=== PATIENT | female | born 1990 | race African-American/Black ===

== ENCOUNTER 2024-12-22 10:57 | Emergency (ER) | payer SELFPAY ==
[~2024-12-22] VITALS: Ht 167.6 cm; Wt 52.8 kg
[2024-12-22 11:10] VITALS: TEMP 97.9
[2024-12-22] MEDS ORDERED: LIDOCAINE HCL 1% 30ML-PF VIAL ONE (11:24)
[2024-12-22] MEDS: LORAZEPAM INJ 2 MG/ML VIAL IV ONE (11:27)
[2024-12-22] MEDS ORDERED: LIDOCAINE 1% 10 ML MULTIDOSE VIAL IJ ONE (11:30)
[2024-12-22] MEDS: Morphine 4mg INJECTION 4 MG/ML INJ IV ONE (11:52)
[2024-12-22 11:53] VITALS: BP 136/81; PULSE 71; RESP 16
[2024-12-22] MEDS: LIDOCAINE HCL 1% LOCAL INJ 20 ML VIAL INJ ONE (12:16)
[2024-12-22] MEDS ORDERED: BACTRIM DS TAB1 EACH PO (12:34)
[2024-12-22 12:55] VITALS: PULSE 71; RESP 16; O2SAT 100
== END 2024-12-22 12:56 | disposition home or self-care (01) ==
LOC: FSED 11:08
DX: L02.411 Cutaneous abscess of right axilla (principal); L73.2 Hidradenitis suppurativa
CPT/HCPCS: 10060; 99283; J2003; J2060; J2270